=== PATIENT | male | born 1940 | race Caucasian/White ===

== ENCOUNTER 2018-03-29 20:25 | Emergency (ER) | payer BC, MEDICARE | END 2018-03-29 21:50 | disposition left against medical advice (07) | LOC: ERS 20:25 | DX: Z53.21 Procedure and treatment not carried out due to patient leaving prior to being seen by health care provider (principal) ==

== ENCOUNTER 2018-06-28 04:12 | Inpatient (IN) | payer BC, MEDICARE ==
[2018-06-28 05:22] LABS: #Eosinphils 0.1 thou/uL (0.0-0.7); #Monocytes 0.9 thou/uL (0.11-0.59); #Neutrophils 11.4 thou/uL (1.40-6.50); %Basophils 0.1 % (0.0-1.0); %Eosinophils 0.4 % (0.0-10.0); %Lymphocytes 13.7 % (21.0-51.0); %Monocytes 6.3 % (0.0-10.0); %Neutrophils 79.5 % (42.0-75.0); Hemoglobin 13.2 g/dL (14.0-18.0); Mean Corpuscular HGB CONC 31.1 g/dL (32.0-36.0); Mean Corpuscular Hemoglobin 28.1 pg (27.0-31.0); Mean Corpuscular Volume 90.3 fL (78.0-98.0); Mean Platelet Volume 10.1 fL (7.4-10.4); Platelet Count 128 thou/uL (130-400); RBC Distribution Width 13.8 % (11.5-14.5); Red Blood Cell (RBC) Count 4.72 mill/uL (4.70-6.10); White Blood Cell (WBC) Count 14.3 thou/uL (4.8-10.8)
[2018-06-28 05:40] LABS: CKMB 1.6 ng/mL (0-6.6); Troponin I Less than 0.010 ng/mL (< 0.028)
[2018-06-28 05:41] LABS: ALT (SGPT) 20 U/L (8-55); AST (SGOT) 22 U/L (5-34); Albumin 3.8 g/dL (3.4-4.8); Alkaline Phosphatase 46 U/L (40-150); Anion Gap 10 mmol/L (10-20); BUN (Urea Nitrogen) 45 mg/dL (8.4-25.7); Bilirubin, Total 0.5 mg/dL (0.2-1.2); Calc. Creatinine Clearance 0 mL/min (70-130); Calcium 8.9 mg/dL (7.8-10.44); Carbon Dioxide 25 mmol/L (23-31); Chloride 108 mmol/L (98-107); Estimated GFR-MDRD 58; Glucose 124 mg/dL (83-110); Magnesium 1.7 mg/dL (1.6-2.6); Protein, Total 5.8 g/dL (5.8-8.1); Sodium 139 mmol/L (136-145)
[2018-06-28] MEDS ORDERED: Ondansetron PF 4 MG/2 ML Vial ONE (06:06)
[2018-06-28 08:19] VITALS: BMI 28.8
[2018-06-28 08:59] LABS: Troponin I Less than 0.010 ng/mL (< 0.028)
--- NOTE | 2018-06-28 09:16 | RAD ---
SINGLE VIEW CHEST: Date: 06/28/18 COMPARISON: 05/28/13. HISTORY: Abdominal discomfort and low blood pressure. FINDINGS: Single view of the chest shows a normal sized cardiomediastinal silhouette. The pacemaker is unchange d in position. There is no evidence of consolidation, mass, or pleural effusion. IMPRESSION: No evidence of acute cardiopulmonary disease. POS: [facility]
[2018-06-28] MEDS ORDERED: Bisacodyl 5 MG TAB PO PRN (10:24)
[2018-06-28] MEDS ORDERED: Ondansetron PF 4 MG/2 ML Vial IVP PRN (10:24)
[2018-06-28] MEDS ORDERED: Senokot S 8.6-50 MG TAB PO PRN (10:24)
[2018-06-28] MEDS ORDERED: Acetaminophen 325 MG TAB PO PRN (10:24)
[2018-06-28] MEDS ORDERED: Sodium Chloride 0.9% 1,000 ML IV SCH (10:30)
[2018-06-28 11:35] LABS: Bilirubin Negative (Negative); Blood, Urine Negative (Negative); Clarity CLEAR (Clear); Glucose, Urine (Dipstick) Negative (Negative); Leukocyte Negative (Negative); Nitrite Negative (Negative); Protein, Urine (Dipstick) Negative (Neg-Trace); Specific Gravity, Urine 1.022 (1.002-1.036); Urobilinogen 0.2 mg/dL (0.2-1.0); pH, Urine 5.5 (5.0-9.0)
[2018-06-28 11:37] LABS: Bacteria/HPF None Seen HPF (None Seen); Hyaline Casts/LPF 0-3 HYALINE CAST LPF (0-3 Hyaline); Pathc Cast-AUWi Flag 0.43 (0-2.49); Squamous Epithelial 0-3 HPF (0-3); WBC/HPF 0-3 HPF (0-3)
[2018-06-28 11:53] LABS: RBC/HPF 0-3 HPF (0-3)
[2018-06-28 12:22] LABS: Troponin I Less than 0.010 ng/mL (< 0.028)
--- NOTE | 2018-06-28 12:24 | PDOC.PN ---
- Subjective Encounter Start Date: 06/28/18 Encounter Start Time: 12:18 Subjective: nsg notes rev, yari ovn, pt seen with his dtr at bedside, h&p reviewed - Objective Resuscitation Status: Resuscitation Status FULL:Full Resuscitation Vital Signs & Weight: Vital Signs (12 hours) Temp Pulse Resp BP Pulse Ox 06/28/18 11:25 98.7 F 82 18 104/62 100 06/28/18 08:09 99.6 F 83 16 125/64 99 Weight Weight 218 lb 3.2 oz Result Diagrams: 06/28/18 05:14 06/28/18 05:14 Phys Exam - Physical Examination nsg notes rev, yari ovn, Respiratory: no wheezing, no rales, no rhonchi, clear to auscultation bilateral Cardiovascular: RRR, no significant murmur Gastrointestinal: soft, positive bowel sounds Musculoskeletal: no edema, pulses present Neurological: moves all 4 limbs Psychiatric: normal affect, A&O x 3 Dx/Plan - Plan * sudden onset of abd pain with BM and subsequent nausea, emesis * had chili hot dog approx 1 hr prior to onset of ssx - presentation could be related to food poisoning but concern that food poisoning is not quite sufficient to explain symptomatic hypotension and leukocytosis that is present * will check CT abd/ pelvis ? diverticulitis? * check blood cx, repeat CBC, symptomatic management * IVF with close monitoring of cardiac and respiratory status * also threw up ice chilps and water earlier this AM * * hx CAD, s/p PCI with MICHA placement * continue telemetry, troponin * * hx tachy prady - currently stable, continue to monitor * * CLL currently on trial including usage of ibutinib * will try to obtain records from [facility] - request sent * * hypothyroidism * check TSH, T4, continue home regimen * * hx of HTN * recent uptitration of antihypertensive regimen but no new med changes in the past month * currently hypotensive - will hold antihypertensives * * diet: npo * activity: as jen * dvt ppx * * d/w pt, pts dtr, bedside nsg, greater than 30 min spent at bedisde Review of Systems - Medications/Allergies Allergies/Adverse Reactions: Allergies Allergy/AdvReac Type Severity Reaction Status Date / Time nitrofurantoin Allergy Verified 06/28/18 08:10 [From Macrodantin] Medications: Current Medications Acetaminophen (Tylenol) 650 mg PO Q4H PRN PRN Reason: Headache/Fever/Mild Pain (1-3) Bisacodyl (Dulcolax) 10 mg PO DAILYPRN PRN PRN Reason: Constipation Enoxaparin Sodium (Lovenox) 40 mg SC 0900 BERNICE Famotidine (Pepcid) 20 mg SLOW IVP Q12HR [facility] Sodium Chloride (Normal Saline 0.9%) 1,000 mls @ 75 mls/hr IV .[id number] BERN[facility] Ciprofloxacin/Dextrose 400 mg/ (Device) 200 mls @ 200 mls/hr IVPB 1100,2300 BERNICE Metronidazole 500 mg/ Device 100 mls @ 100 mls/hr IVPB Q8HR [facility] Ondansetron HCl (Zofran) 4 mg IVP Q6H PRN PRN Reason: Nausea/Vomiting Senna/Docusate Sodium (Senokot S) 2 tab PO BID PRN PRN Reason: Constipation Valacyclovir HCl (Valtrex) 500 mg PO DAILY BERN[facility]
[2018-06-28] MEDS ORDERED: Heparin 5,000 UNITS/ML VIAL SC SCH (15:00)
[2018-06-28] MEDS ORDERED: Iopamidol 370 76% 100 ML VIAL ONE (15:52)
--- NOTE | 2018-06-28 16:32 | CT ---
CT THORAX WITH IV CONTRAST CT ABDOMEN AND PELVIS WITH IV CONTRAST: Date: 06/28/18 HISTORY: Patient with lymphoma, elevated white blood cell count, hypertension, and vomiting. COMPARISON: PET CT dated 07/28/16. FINDINGS: CT THORAX: A left subclavian cardiac pacemaking device is again noted in place. Vascular calcifications are seen in the coronary arteries. A few mildly prominent axillary lymph nodes, which are stable in size compared to prior PET CT scan e xamination. No hypermetabolic activity was noted in these lymph nodes on the prior PET CT exam. No en larged mediastinal or hilar lymph nodes are present. There is a small, 7.0 mm, noncalcified pulmonary nodule in the medial aspect of the right upper lobe. This was probably present on the prior exam, but less well delineated given PET CT imaging. No addit ional discrete pulmonary nodule mass is seen. There is a calcified pleural based plaque at the pelletizer operator ior right lung base, also seen on prior PET CT exam. There is bibasilar atelectasis present. No lytic or sclerotic osseous lesions are identified. CT ABDOMEN AND PELVIS: There is a subcentimeter, too small to characterize, hypodense lesion seen in the medial segment of t he left hepatic lobe. Liver otherwise has a normal CT appearance. There are several small, subcentimeter, too small to characterize hypodense lesions within the spleen , which could be related to lymphoma given patient's clinical history. There is mesenteric, as well a s aortocaval lymphadenopathy seen. Largest mesenteric lymph node within the central mesentery measure s 2.2 cm in short axis dimension. While lymph nodes were seen in this region on the prior study, no e nlarged lymph node was seen in this region. There are several enlarged lymph nodes now present in the mesentery, and on prior PET CT exam, there was an increased number with no enlarged lymph nodes pres ent. Again noted is enlargement of a precaval lymph node measuring 2.3 cm in short axis dimension. There i s increased number and multiple enlarged aortocaval lymph nodes seen. The largest conglomeration of l ymph nodes in a left paraaortic location measures approximately 5.4 cm transverse x 5.2 cm AP. This h as increased when compared to prior PET CT exam with previous measurement of the conglomeration of ly mph nodes measuring 3.9 cm transverse x 4.9 cm AP. There is also an enlarged conglomeration of lymph nodes seen in lower left periaortic location measuring 3.6 cm AP x 4.9 cm transverse, similar to prio r study. Enlarged iliac chain lymph nodes are also again present. Left retrocrural lymph node measuri ng 1.3 cm in short axis is present. There is a right adrenal nodule measuring 2.8 cm, which is larger in size when compared to the prior study. No hypermetabolic activity was seen and this did demonstrate an attenuation coefficient on henri or study most suggestive of an adrenal adenoma, although this does measure larger in size on today's exam measuring 2.8 cm and previously measured 2.5 cm. The pancreas and left adrenal gland have normal CT appearance. There is a fluid attenuation 2.9 cm hypodense lesion central aspect of the right kidney likely relate d to a parapelvic renal cyst. There is an increased density exophytic lesion mid portion of left kidney measuring 2.0 cm. This prev iously measured 3.[address] exam and is smaller in size, but cannot be characterized without p recontrast imaging on this study to evaluate for enhancement. This may possibly represent hyperdense renal cyst, but follow-up CT scan of abdomen with and without IV contrast is recommended. A few addit ional tiny exophytic lesion are also seen at the inferior pole of the left kidney, also seen on prior PET CT exam and are similar to that exam, although more anteriorly and inferior exophytic lesion is larger in size measuring 1.4 cm, and previously measured 0.8 cm. There is scarring seen in the superior pole left kidney with hypodense cystic structure again seen in this region which demonstrates increased density layering posteriorly consistent with calcification. This is present on the prior CT exam and may be related to a caliceal diverticulum with calcificatio n posteriorly versus cyst with calcification posteriorly. Normal caliber retrocecal appendix is present. There is dilatation of the proximal jejunum with loops of jejunum measuring up to 3.6 cm. These bowel loops in this region also are slightly thickened. No adjacent inflammatory stranding is present. Dev eloping partial small bowel obstruction is a possibility, although no abrupt transition poin is prese nt. Findings may be related to enteritis. There is colonic diverticulosis. Vascular calcifications in abdominal aorta involving the iliac arteries. Urinary bladder is incompletely distended, but normal in appearance. There are small, fat-containing bilateral umbilical hernias. Imaging was obtained through the lower extremities to just below the level of the knee. No enlarged l ymph nodes are seen within the visualized lower extremities. There are mild vascular calcifications p resent. Hemangiomas are present within the L1 and L2 vertebral bodies. Small lucency within the left iliac bone measuring less than 1.0 cm, also seen on prior PET CT scan e xam. This has an overall nonaggressive appearance. IMPRESSION: 1. Abdominal and pelvic lymphadenopathy as described above, likely attributable to patient's history of lymphoma. 2. Small, subcentimeter, hypodense lesions throughout the spleen which may be attributable to lympho ma as well. 3. Increased exophytic lesions involving the left kidney, may represent hyperdense Bosniak Type II r enal lesions. The largest increased density exophytic lesions involving the left kidney has decreased in size compared to the prior PET CT scan examination. Follow-up CT abdomen with and without IV cont rast is suggested to evaluate for enhancement of the smaller lesions. 4. Mild interval enlargement of a right adrenal lesion, which did not demonstrate hypermetabolic act ivity on prior PET CT scan exam and also demonstrated an attenuation coefficient on that exam suggest ing an adrenal adenoma. 5. Subcentimeter, too small to characterize, hypodense lesion left hepatic lobe. 6. 7.0 mm pulmonary nodule medial right upper lobe. 7. Dilated loops of jejunum with mild thickening of loops of proximal small bowel. Findings are over all nonspecific, and while findings could be related to early small bowel obstruction, there is no ab rupt transition point. Findings could be related to enteritis. 8. Right renal cyst. 9. Fat-containing bilateral inguinal hernias. POS: [facility]
[2018-06-28] MEDS: metroNIDAZOLE 500 MG in Premix Bag 1 BAG IVPB SCH ×2 (16:39→20:51)
[2018-06-28 17:42] LABS: Troponin I Less than 0.010 ng/mL (< 0.028)
[2018-06-28] MEDS: Famotidine/PF 20 mg/2ml Vial SLOW IVP SCH (20:50)
[2018-06-28 22:48] LABS: Troponin I Less than 0.010 ng/mL (< 0.028)
--- NOTE | 2018-06-28 23:53 | CON ---
DATE OF CONSULTATION: 06/28/2018 REASON FOR CONSULTATION: CLL. HISTORY OF PRESENT ILLNESS: A 78-year-old male with 2-1/2 years history of CLL, currently on ibrutinib clinical trial at [facility] presenting with nausea, vomiting, and hypotension. Patien t states he had a homemade chili dog at home yesterday, watched the football game fell asleep, woke u p around 1:00 a.m. feeling extremely sick with projectile vomiting and came to the ER where he was fo und to be hypotensive. Patient is currently admitted to the ICU and has been receiving IV fluid resu scitation and states that he is feeling much better. Patient's labs showed a white blood cell count of 14.3, hemoglobin of 13.2 and platelets of 128. Patient was seen in our [facility] by Dr. Monica lockhart in the end of 2015 and the beginning and last seen in 10/2016. He was diagnosed with CLL at that time and did not require any treatment. The patient was last seen a year and a half ago and has sinc e been seen at [facility] and placed on a clinical trial with ibrutinib with plans for 3 months of t reatment followed by initiation of concurrent venetoclax which is due to start in July. Patient has tolerated treatment well without diarrhea, rash or bleeding and no history of atrial fibrillation . Patient's vital signs are currently stable and he had a CT of the chest, abdomen, and pelvis this morning and read is currently pending. The patient denies any diarrhea, fevers or chills at this akbar e. He denies any worsening lymphadenopathy or unintentional weight loss. He states he has had a manisha mendous response to ibrutinib with decreased size in his spleen and his lymph nodes since initiation of treatment 2 months ago. REVIEW OF SYSTEMS: Ten point review of systems negative except as per HPI. PAST MEDICAL HISTORY: CLL, hypothyroidism, CAD status post PCI, hypertension. 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 FAMILY HISTORY: No family history of malignancy. SOCIAL HISTORY: Patient is with 3 children. Lives with his spouse. Former 1 pack per day s moker for 8 years and stopped in 1974. Rare alcohol use. PHYSICAL EXAMINATION: VITAL SIGNS: Temperature 98.3, pulse 75, respirations 18, satting 100% on room air, blood pressure t marlon 104-125/62-68. GENERAL APPEARANCE: The patient is lying in bed in no acute distress, appears comfortable. HEENT: Mild cervical lymphadenopathy. No other palpable lymphadenopathy. CARDIOVASCULAR: S1, S2, regular rate and rhythm. Respirations nonlabored. Clear to auscultation bi laterally. ABDOMEN: Soft, nondistended, and nontender. No large palpable splenomegaly. EXTREMITIES: No edema. NEUROLOGIC: Cranial nerves II-XII grossly intact. SKIN: No rashes or bruising. PSYCHIATRIC: Awake, alert and oriented x3 with appropriate affect. LABORATORY DATA: White blood cells 14.3, hemoglobin 13.2, platelets 128, neutrophils 79.5%, lymphocy sadi 13.7%, BUN 45, creatinine 1.22, lipase 120. Urinalysis negative. IMAGING DATA: CT chest, abdomen and pelvis currently pending. Chest x-ray no evidence of acute card iopulmonary disease. ASSESSMENT AND PLAN: A 78-year-old male with history of CLL, currently on ibrutinib and cl inical trial at [facility] due to start venetoclax in July on trial. The patient has had a good response to ibrutinib and is tolerating treatment well without any severe adverse effects. The porsche ent presented to the hospital with nausea, vomiting, and hypotension. It appears to have improved wi th IV fluid resuscitation and this is possibly due to food poisoning. CT chest, abdomen, and the pel vis are currently pending to evaluate for any other additional acute findings. He did not believe an y of his current symptoms are due to his chronic lymphocytic leukemia or his burden of therapy. Blake obie, in the interim of any acute event we will hold ibrutinib as this can increase risk for bleeding if he is to require any procedures in the hospital. I discussed this with the patient and his family and they all agree with the plan. Patient may continue to follow up with [facility] at discharge a nd restart his ibrutinib after discharge as well. We will sign off. Please contact me if I can be o f any further assistance.
[2018-06-29 05:08] LABS: #Lymphocytes 2.2 thou/uL (1.20-3.40); #Monocytes 0.9 thou/uL (0.11-0.59); #Neutrophils 6.3 thou/uL (1.40-6.50); %Basophils 0.2 % (0.0-1.0); %Eosinophils 0.3 % (0.0-10.0); %Lymphocytes 23.5 % (21.0-51.0); %Monocytes 9.5 % (0.0-10.0); %Neutrophils 66.5 % (42.0-75.0); Hemoglobin 12.1 g/dL (14.0-18.0); Mean Corpuscular HGB CONC 32.3 g/dL (32.0-36.0); Mean Corpuscular Hemoglobin 29.6 pg (27.0-31.0); Mean Corpuscular Volume 91.9 fL (78.0-98.0); Mean Platelet Volume 10.5 fL (7.4-10.4); Platelet Count 93 thou/uL (130-400); RBC Distribution Width 14.1 % (11.5-14.5); Red Blood Cell (RBC) Count 4.08 mill/uL (4.70-6.10); White Blood Cell (WBC) Count 9.4 thou/uL (4.8-10.8)
[2018-06-29 05:24] LABS: Troponin I Less than 0.010 ng/mL (< 0.028)
[2018-06-29] MEDS: metroNIDAZOLE 500 MG in Premix Bag 1 BAG IVPB SCH (05:33)
[2018-06-29 05:35] LABS: ALT (SGPT) 15 U/L (8-55); AST (SGOT) 18 U/L (5-34); Albumin 3.1 g/dL (3.4-4.8); Alkaline Phosphatase 33 U/L (40-150); Anion Gap 10 mmol/L (10-20); BUN (Urea Nitrogen) 36 mg/dL (8.4-25.7); Calc. Creatinine Clearance 76 mL/min (70-130); Calcium 8.2 mg/dL (7.8-10.44); Carbon Dioxide 23 mmol/L (23-31); Chloride 109 mmol/L (98-107); Estimated GFR-MDRD 61; Globulin 1.7 g/dL (2.4-3.5); Glucose 124 mg/dL (83-110); Potassium 4.5 mmol/L (3.5-5.1); Protein, Total 4.8 g/dL (5.8-8.1); Sodium 137 mmol/L (136-145)
[2018-06-29] MEDS: Famotidine/PF 20 mg/2ml Vial SLOW IVP SCH (08:57)
[2018-06-29] MEDS ORDERED: valACYclovir 500 MG TAB PO SCH (09:00)
[2018-06-29] MEDS ORDERED: Enoxaparin Sodium 40 MG/0.4 ML SYRINGE SC SCH (09:00)
[2018-06-29] MEDS ORDERED: Cipro 250 MG TAB PO SCH ×2 (10:30→20:00)
[2018-06-29] MEDS ORDERED: metroNIDAZOLE 500 MG TAB PO SCH ×2 (10:30→15:00)
[2018-06-29 11:22] VITALS: BP 124/67; TEMP 97.7
[2018-06-29] MEDS ORDERED: Famotidine 20 MG TAB PO SCH (21:00)
--- NOTE | 2018-06-30 07:37 | DIS ---
DATE OF ADMISSION: 06/28/2018 DATE OF DISCHARGE: 06/29/2018 DISCHARGE DISPOSITION: Home. FOLLOWUP: 1. Follow up with primary care physician, Dr. Jarad Pappas in 1 week. 2. Follow up at [facility]. DISCHARGE MEDICATIONS: Ciprofloxacin 250 mg twice a day for the next 5 days, Flagyl 500 mg 3 times d aily for next 5 days. All other home medications were left unchanged. A base met after 1 week is recommended. Primary care physician is advised to follow. ALLERGIES: The patient is allergic to NITROFURANTOIN. The patient was seen on the day of discharge, denies any new complaints, no chest pain, shortness of breath or palpitations. BRIEF HOSPITAL COURSE: The patient is a 78-year-old male with CLL, currently on ibrutinib clinical t rial at [facility] presented with nausea, vomiting, low blood pressure as well as generalized weakne ss. His blood pressure in the emergency room was in systolic 70s. Please refer to the history and p hysical for further details. The patient was admitted to the hospital with the above diagnosis. His blood pressure improved with IV hydration. He underwent CT scan of the chest, abdomen and pelvis in the emergency room that showe d some dilated loops of jejunum with mild thickening of the loops of proximal small bowel. It also s howed multiple other findings including abdominal and pelvic lymphadenopathy. He was started on cipr ofloxacin and Flagyl. He is currently tolerating regular food. His abdominal pain has completely re solved. He denies any lightheadedness, weakness. He appears stable for discharge. FINAL DIAGNOSES: 1. Nausea, vomiting with hypotension secondary to dehydration from gastroenteritis. 2. Chronic lymphocytic leukemia, currently on ibrutinib clinical trial. 3. Hypothyroidism. 4. Coronary artery disease, status post PCI. 5. Hypertension. 6. Dehydration. 7. Chronic kidney disease stage 2. 8. Leukocytosis, probably secondary to sepsis from acute gastroenteritis. Plan of care was discussed with the patient in detail, he stated understanding.
== END 2018-06-29 14:34 | disposition home or self-care (01) | DRG 641 ==
LOC: ERS 04:12 → IMCU/EMU 08:06
PROVIDERS: ADMIT Internal Medicine; ATTEND Internal Medicine
DX: E86.0 Dehydration (principal); C91.10 Chronic lymphocytic leukemia of B-cell type not having achieved remission; K52.9 Noninfective gastroenteritis and colitis, unspecified; E03.9 Hypothyroidism, unspecified; I25.10 Atherosclerotic heart disease of native coronary artery without angina pectoris; Z98.61 Coronary angioplasty status; I12.9 Hypertensive chronic kidney disease with stage 1 through stage 4 chronic kidney disease, or unspecified chronic kidney disease; N18.2 Chronic kidney disease, stage 2 (mild)
CPT/HCPCS: 36415; 71045; 71260; 74177; 80053; 81001; 82553; 83605; 83690; 83735; 83880; 84484; 85025; 87040; 93005; 96374; J0744; J1650; J2405; S0028

== ENCOUNTER 2022-07-17 10:17 | Emergency (ER) | payer BC, MEDICARE ==
[2022-07-17] MEDS ORDERED: Iopamidol-370 76% 500 ML 1 ML ONE (10:36)
[2022-07-17 11:26] LABS: Hemoglobin 13.5 g/dL (14.0-18.0); Mean Corpuscular HGB CONC 32.9 g/dL (32.0-36.0); Mean Corpuscular Hemoglobin 31.5 pg (27.0-31.0); Mean Corpuscular Volume 95.6 fl (78.0-98.0); Mean Platelet Volume 8.7 fL (7.4-10.4); Platelet Count 94 10x3/uL (130-400); RBC Distribution Width 12.1 % (11.5-14.5); Red Blood Cell (RBC) Count 4.29 mill/uL (4.70-6.10); White Blood Cell (WBC) Count 4.4 10x3/uL (4.8-10.8)
[2022-07-17 11:39] LABS: Bacteria/HPF None Seen HPF (None Seen); Bilirubin Negative (Negative); Blood, Urine 3+ (Negative); Clarity Clear (Clear); Glucose, Urine (Dipstick) Normal (Negative); Ketone, Urine Negative (Negative); Leukocyte Negative Leu/uL (Negative); Nitrite Negative (Negative); Protein, Urine (Dipstick) Negative (Neg-Trace); RBC/HPF 21-50 HPF (0-3); Specific Gravity, Urine 1.014 (1.002-1.036); Squamous Epithelial 0-3 HPF (0-3); Urobilinogen Normal mg/dL (Less than 2); WBC/HPF 0-3 HPF (0-3); pH, Urine 5.5 (5.0-9.0)
[2022-07-17 12:01] LABS: ALT (SGPT) 19 U/L (8-55); AST (SGOT) 22 U/L (5-34); Alkaline Phosphatase 55 U/L (40-110); Anion Gap 9 mmol/L (10-20); BUN (Urea Nitrogen) 25 mg/dL (8.4-25.7); Bilirubin, Total 0.6 mg/dL (0.2-1.2); Calc. Creatinine Clearance 0 mL/min (70-130); Calcium 9.8 mg/dL (7.8-10.44); Carbon Dioxide 28 mmol/L (23-31); Chloride 106 mmol/L (98-107); Estimated GFR 79; Globulin 2.3 g/dL (2.4-3.5); Glucose 102 mg/dL (83-110); Lipase 42 U/L (8-78); Potassium 4.2 mmol/L (3.5-5.1); Protein, Total 6.3 g/dL (5.8-8.1); Sodium 139 mmol/L (136-145)
[2022-07-17 12:07] LABS: #Eosinphils 0.1 thou/uL (0.0-0.7); #Lymphocytes 1.2 thou/uL (1.20-3.40); #Monocytes 0.4 thou/uL (0.11-0.59); #Neutrophils 2.7 thou/uL (1.40-6.50); %Basophils 0.3 % (0.0-1.0); %Eosinophils 1.2 % (0.0-10.0); %Lymphocytes 27.4 % (21.0-51.0); %Monocytes 9.1 % (0.0-10.0)
== END 2022-07-17 14:18 | disposition home or self-care (01) ==
LOC: ERS 10:17
DX: N13.2 Hydronephrosis with renal and ureteral calculous obstruction (principal); E78.5 Hyperlipidemia, unspecified; I10 Essential (primary) hypertension; Z87.891 Personal history of nicotine dependence
CPT/HCPCS: 36415; 74177; 80053; 81003; 81015; 83690; 85025; Q9967

== ENCOUNTER 2025-04-12 22:01 | Emergency (ER) | payer BC ==
[~2025-04-12 22:01] MED LIST: Iopamidol-370 76% 500 ML MDV (1 ML CHARGE) ONE
[2025-04-12 23:40] LABS: ALT (SGPT) 16 U/L (Less than 45); AST (SGOT) 25 U/L (11-34); Albumin 3.4 g/dL (3.1-4.5); Alkaline Phosphatase 71 U/L (40-110); Anion Gap 15 mmol/L (10-20); BUN (Urea Nitrogen) 36 mg/dL (8.4-25.7); Bilirubin, Total 0.4 mg/dL (0.3-1.2); CK (CPK) 63 U/L (30-200); Calc. Creatinine Clearance 0 mL/min (70-130); Calcium 9.1 mg/dL (7.8-10.44); Carbon Dioxide 23 mmol/L (23-31); Chloride 106 mmol/L (98-107); Globulin 3.1 g/dL (2.4-3.5); Glucose 128 mg/dL (83-110); Lipase 48 U/L (8-78); Magnesium 2.2 mg/dL (1.6-2.6); Potassium 4.5 mmol/L (3.5-5.1); Sodium 139 mmol/L (136-145)
[2025-04-13 00:24] LABS: Anisocytosis SLIGHT = 6-15 cells HPF (0-5); Macrocytosis SLIGHT = 6-15 cells HPF (0-5); Ovalocytes SLIGHT = 2-5 cells HPF (0-1); Platelet Adequacy Comment Platelets Decreased; Polychromasia SLIGHT = 2-3 cells HPF (0-2)
[2025-04-13 00:26] LABS: #Basophils Less than 0.03 10x3/uL (0.0-0.2); #Eosinophils Less than 0.03 10x3/uL (0.0-0.7); #Monocytes 0.91 10x3/uL (0.11-0.59); #Neutrophils 12.16 10x3/uL (1.40-6.50); %Basophils 0.1 % (0.0-1.0); %Eosinophils 0.1 % (0.0-10.0); %Lymphocytes 8.6 % (21.0-51.0); %Monocytes 6.3 % (0.0-10.0); %Neutrophils 84.4 % (42.0-75.0); Hematocrit 41.1 % (42.0-52.0); Hemoglobin 13.6 g/dL (14.0-18.0); Mean Corpuscular Hemoglobin 29.7 pg (27.0-31.0); Mean Corpuscular Volume 89.7 fL (78.0-98.0); Platelet Count 98 10x3/uL (130-400); Red Blood Cell (RBC) Count 4.55 mill/uL (4.70-6.10); White Blood Cell (WBC) Count 14.41 10x3/uL (4.8-10.8)
[2025-04-13] MEDS ORDERED: cefTRIAXone (ROCEPHIN) 2 GM VIAL ONE (00:57)
[2025-04-13 01:10] LABS: Bacteria/HPF None Seen HPF (None Seen); CAUTI Indications for Culture Dysuria,urgency,freq; Glucose, Urine (Dipstick) Normal (Negative); Leukocyte 250 Leu/uL (Negative); Protein, Urine (Dipstick) Negative (Neg-Trace)
[2025-04-13 01:12] LABS: Specific Gravity, Urine Greater than 1.050 (1.002-1.036); Urine Culture Reflex Yes Yes
[2025-04-13] MEDS ORDERED: Azithromycin 500 MG VIAL ONE (01:43)
[2025-04-13] MEDS ORDERED: diphenhydrAMINE 50 MG/ML VIAL ONE (02:20)
== END 2025-04-13 02:51 | disposition home or self-care (01) ==
LOC: ERS 22:01
DX: B34.9 Viral infection, unspecified (principal); R09.82 Postnasal drip; I10 Essential (primary) hypertension; Z87.891 Personal history of nicotine dependence; Z79.899 Other long term (current) drug therapy
CPT/HCPCS: 36415; 71275; 80053; 81001; 82550; 83605; 83690; 83735; 83880; 84484; 85025; 87040; 87086; 87428; 93005; 96365; 96367; 96375; J0456; J0696; J1200; J2919; Q9967

== ENCOUNTER 2025-08-21 14:16 | Emergency (ER) | payer BC ==
[2025-08-21 17:51] LABS: #Basophils 0.05 10x3/uL (0.0-0.2); #Eosinophils 0.25 10x3/uL (0.0-0.7); #Monocytes 1.13 10x3/uL (0.11-0.59); #Neutrophils 4.41 10x3/uL (1.40-6.50); %Basophils 0.6 % (0.0-1.0); %Eosinophils 2.9 % (0.0-10.0); %Lymphocytes 31.2 % (21.0-51.0); %Monocytes 13.2 % (0.0-10.0); %Neutrophils 51.6 % (42.0-75.0); Hematocrit 41.8 % (42.0-52.0); Hemoglobin 13.7 g/dL (14.0-18.0); Mean Corpuscular Hemoglobin 30.2 pg (27.0-31.0); Mean Corpuscular Volume 92.1 fL (78.0-98.0); Platelet Count 142 10x3/uL (130-400); Red Blood Cell (RBC) Count 4.54 mill/uL (4.70-6.10); White Blood Cell (WBC) Count 8.55 10x3/uL (4.8-10.8)
[2025-08-21 18:14] LABS: ALT (SGPT) 27 U/L (Less than 45); AST (SGOT) 33 U/L (11-34); Albumin 3.6 g/dL (3.1-4.5); Alkaline Phosphatase 90 U/L (40-110); Anion Gap 14 mmol/L (10-20); BUN (Urea Nitrogen) 27 mg/dL (8.4-25.7); Bilirubin, Total 0.6 mg/dL (0.3-1.2); Calc. Creatinine Clearance 0 mL/min (70-130); Calcium 9.6 mg/dL (7.8-10.44); Carbon Dioxide 25 mmol/L (23-31); Chloride 109 mmol/L (98-107); Globulin 2.7 g/dL (2.4-3.5); Glucose 95 mg/dL (83-110); Potassium 3.9 mmol/L (3.5-5.1); Sodium 144 mmol/L (136-145)
[2025-08-21 20:30] LABS: Bacteria/HPF None Seen HPF (None Seen); CAUTI Indications for Culture Dysuria,urgency,freq; Glucose, Urine (Dipstick) Normal (Negative); Leukocyte Negative Leu/uL (Negative); Protein, Urine (Dipstick) Negative (Neg-Trace); RBC/HPF 0-3 HPF (0-3); Specific Gravity, Urine 1.016 (1.002-1.036); WBC/HPF None Seen HPF (0-3)
[2025-08-21 20:38] LABS: Urine Culture Reflex No No
== END 2025-08-21 20:40 | disposition home or self-care (01) ==
LOC: ERS 14:16
DX: M79.89 Other specified soft tissue disorders (principal); D64.9 Anemia, unspecified; R79.82 Elevated C-reactive protein (CRP); I10 Essential (primary) hypertension; Z87.891 Personal history of nicotine dependence; Z79.899 Other long term (current) drug therapy
CPT/HCPCS: 36415; 71046; 80053; 81001; 83880; 85025; 86141; 93005; 93970